=== PATIENT | female | born 1950 | race Caucasian/White ===

== ENCOUNTER 2017-12-20 06:37 | Outpatient (CLI) | payer MEDICARE ==
[~2017-12-20] VITALS: Ht 149.9 cm; Wt 63.5 kg
[2017-12-20] MEDS ORDERED: RT-ALBUINH IH (12:38)
[2017-12-20] MEDS ORDERED: ISOS30TA3 PO (12:38)
[2017-12-20] MEDS ORDERED: SUCR1ORA5 PO (12:38)
[2017-12-20] MEDS ORDERED: LEVO5TAB28 PO (12:38)
[2017-12-20] MEDS ORDERED: CITA20TA12 PO (12:38)
[2017-12-20] MEDS ORDERED: NF-ESOM40C PO (12:38)
[2017-12-20] MEDS ORDERED: MONT10TA24 PO (12:38)
== END 2017-12-20 12:45 | disposition home or self-care (01) ==
LOC: PREOP 06:37
PROVIDERS: ATTEND Otolaryngology Otolaryngology/Facial Plastic Surgery
DX: Z01.818 Encounter for other preprocedural examination (principal)

== ENCOUNTER 2017-12-22 06:49 | Day surgery (SDC) | payer MEDICARE, OTHER ==
[~2017-12-22] VITALS: Ht 149.9 cm; Wt 63.5 kg
[~2017-12-22 06:49] MED LIST: CITA20TA12 PO; ISOS30TA3 PO; LEVO5TAB28 PO; MONT10TA24 PO; NF-ESOM40C PO; RT-ALBUINH IH; SUCR1ORA5 PO
[2017-12-22 07:30] VITALS: BP 185/81
[2017-12-22] MEDS: LACTATED RINGERS 1,000 ML IV PRN ×2 (07:39→10:18)
[2017-12-22] MEDS ORDERED: FAMOTIDINE 20MG/2ML IV (PEPCID) ONE (07:42)
[2017-12-22] MEDS ORDERED: MIDAZOLAM 2 MG/2 ML (VERSED) VIAL ONE ×2 (07:44→09:33)
[2017-12-22] MEDS ORDERED: fentaNYL INJECTION 100 MCG/2 ML AMP ONE (07:44)
[2017-12-22 07:50] LABS: BASOPHILS % (AUTO) 1 % (0-10); EOSINOPHILS # (AUTO) 0.2 10^3/uL (0.0-0.3); EOSINOPHILS % (AUTO) 3 % (0-10); HEMATOCRIT 39 % (35-52); HEMOGLOBIN 13.4 G/DL (11.5-16.0); LYMPHOCYTES # (AUTO) 2.3 X 10^3 (1.0-4.0); LYMPHOCYTES % (AUTO) 38 % (12-44); MEAN CORPUSCULAR HEMOGLOBIN 30 PG (25-34); MEAN CORPUSCULAR HGB CONC 35 G/DL (32-36); MEAN CORPUSCULAR VOLUME 86 FL (80-99); MEAN PLATELET VOLUME 8.5 FL (7.4-10.4); MONOCYTES # (AUTO) 0.7 X 10^3 (0.0-1.0); MONOCYTES % (AUTO) 12 % (0-12); NEUTROPHILS # (AUTO) 2.9 X 10^3 (1.8-7.8); NEUTROPHILS % (AUTO) 47 % (42-75); PLATELET COUNT 287 10^3/uL (130-400); RED BLOOD COUNT 4.54 10^6/uL (4.35-5.85); RED CELL DISTRIBUTION WIDTH 12.8 % (10.0-14.5); WHITE BLOOD COUNT 6.1 10^3/uL (4.3-11.0)
[2017-12-22] MEDS ORDERED: FAMOTIDINE 20MG/2ML IV (PEPCID) IV ONE (08:00)
[2017-12-22] MEDS ORDERED: MUPIROCIN 2% OINT 22 GM (BACTROBAN) TUBE ONE (08:06)
[2017-12-22] MEDS ORDERED: LIDOCAINE/EPI 1%-1:200,000 (XYLOCAINE) 10 ML VIAL ONE (08:06)
[2017-12-22 08:07] LABS: BUN/CREATININE RATIO 9; CALCIUM 9.7 MG/DL (8.5-10.1); CARBON DIOXIDE 24 MMOL/L (21-32); CHLORIDE 106 MMOL/L (98-107); CREATININE SERUM 0.92 MG/DL (0.60-1.30); GFR ESTIMATED > 60; GLUCOSE 94 MG/DL (70-105); POTASSIUM 3.7 MMOL/L (3.6-5.0); SODIUM 141 MMOL/L (135-145)
--- NOTE | 2017-12-22 08:43 | Progress Note-Pre Operative ---
Pre-Operative Progress Note H&P Reviewed The H&P was reviewed, patient examined and no changes noted. Date Seen by Provider: Dec 22, 2017 Time Seen by Provider: 07:45 Date H&P Reviewed: Dec 22, 2017 Time H&P Reviewed: 07:45 Pre-Operative Diagnosis: Left Nasal Lesion MEGAN KAY MD Dec 22, 2017 8:43 am
[2017-12-22] MEDS ORDERED: DEXAMETHASONE 10 MG/ML (DECADRON) 1 ML VIAL ONE (09:34)
[2017-12-22] MEDS ORDERED: ONDANSETRON 4 MG/2 ML (SDV) Z0FRAN ONE (09:34)
[2017-12-22] MEDS ORDERED: proPOfol 200 MG/20 ML (DIPRIVAN) VIAL IV ONE (09:34)
[2017-12-22] MEDS ORDERED: LIDOCAINE PF 2% 5 ML (XYLOCAINE) VIAL ONE (09:34)
[2017-12-22] MEDS ORDERED: SEVOFLURANE (ULTANE) 15 ML INHAL SOLN ONE ×3 (09:34→10:00)
--- NOTE | 2017-12-22 09:56 | Progress Note-Post Operative ---
Post-Operative Progess Note Surgeon (s)/Detective Investigator (s) Surgeon MEGAN KAY MD Detective Investigator n/a Pre-Operative Diagnosis Left Nasal Lesion Post-Operative Diagnosis same Post-Op Procedure Note Date of Procedure: Dec 22, 2017 Name of Procedure Performed: Excision of Left Nasal Alar BAsal Cell, Rconstuction with Local Advancement Flap Description & Findings Description and Findings: n/a Anesthesia Type get Estimated Blood Loss minimal Packing none. Specimen(s) collected/removed left nasal alra [id number] cell MEGAN KAY MD Dec 22, 2017 9:56 am
[2017-12-22] MEDS ORDERED: ACETAMINOPHEN 325 MG TABLET PO PRN (10:00)
[2017-12-22] MEDS ORDERED: HYDROcodone/APAP 5 MG/325 MG (LORTAB) TAB PO PRN (10:00)
[2017-12-22] MEDS ORDERED: fentaNYL INJECTION 100 MCG/2 ML AMP IVP ONE (10:30)
[2017-12-22 11:15] VITALS: BP 170/84
[2017-12-22] MEDS ORDERED: ACHD5005 PO (11:21)
[2017-12-22] MEDS ORDERED: CIPR-226 PO (11:21)
[2017-12-22 11:45] VITALS: BP 173/75
[2017-12-22 12:15] VITALS: BP 157/66
[2017-12-22 12:25] VITALS: BP 157/66
--- NOTE | 2017-12-22 18:28 | Anesthesia-General Post-Op ---
General Patient Condition Mental Status/LOC: Same as Preop Cardiovascular: Satisfactory Nausea/Vomiting: Absent Respiratory: Satisfactory Pain: Controlled Complications: Absent Post Op Complications Complications None Follow Up Care/Instructions Patient Instructions None needed. Anesthesia/Patient Condition Patient Condition Patient was seen after the procedure and she was doing well, no complaints, stable vital signs, no apparent adverse anesthesia problems. LETICIA OVIEDO DO Dec 22, 2017 18:28
== END 2017-12-22 12:25 | disposition home or self-care (01) ==
LOC: SDC 06:49
PROVIDERS: ATTEND Otolaryngology Otolaryngology/Facial Plastic Surgery
DX: C44.311 Basal cell carcinoma of skin of nose (principal); J45.909 Unspecified asthma, uncomplicated; K21.9 Gastro-esophageal reflux disease without esophagitis; Z79.899 Other long term (current) drug therapy
CPT/HCPCS: 36415; 80048; 85025; 87081; 88305; 88331; 93005